=== PATIENT | female | born 1990 | race Caucasian/White ===

== ENCOUNTER 2018-09-09 16:59 | Emergency (ER) | payer OTHER ==
[~2018-09-09] VITALS: Ht 160 cm; Wt 59.0 kg
[~2018-09-09 16:59] MED LIST: ACETAMINOPHEN-1 EAC1 PO; ALEVE220 MG PO; CEPHALEXIN 500500 M3 PO; CIPROFLOXACIN500 M1 PO; CYCLOBENZAPRINE5 MG PO; EXPECTORAN100 MG/51 PO; FLAGYL500 MG PO; IBUPROFEN 600600 M1 PO; NORCO 5-325 TA1 EAC1 PO; NORCO 5-325 TA1 EACH PO; PENICILLIN V P500 MG PO; PREDNISONE 20 M20 M1 PO; PROAIR HFA8.5 GM INH; ROBAXIN500 MG PO; TRAMADOL 50 MG50 MG PO; TYLENOL EXTRA500 MG PO; ZOFRAN ODT4 MG SUBLING
[2018-09-09 18:12] LABS: ABSOLUTE LYMPHOCYTES 0.9 thou/uL (0.8-5.3); ABSOLUTE MONOCYTES 0.3 thou/uL (0.0-1.2); ABSOLUTE NEUTROPHILS 5.6 thou/uL (1.6-8.1); BASOPHILS 0.2 %; HEMATOCRIT 34.6 % (37.0-47.0); HEMOGLOBIN 11.5 gm/dL (12.0-15.0); LYMPHOCYTES 13.1 %; MCH 26.5 pg (26.0-34.0); MCHC 33.3 g/dL (28.0-37.0); MCV 79.8 fL (80.0-100.0); MPV 7.9 fl. (7.2-11.1); NUCLEATED RBCS 0 /100WBC; PLATELET COUNT* 232 thou/uL (150-400); POLYS 81.7 %; RBC 4.34 mil/uL (4.20-5.00); RDW-CV 17.6 % (10.5-14.5); WBC 6.9 thou/uL (4.0-11.0)
[2018-09-09 18:18] LABS: CALCIUM 9.1 mg/dL (8.5-10.1); CREATININE 0.8 mg/dL (0.6-1.3); POTASSIUM 3.5 mmol/L (3.5-5.1)
[2018-09-09 18:22] LABS: ALBUMIN 3.9 g/dL (3.4-5.0); TOTAL BILIRUBIN 0.8 mg/dL (<0.1-1.0); TOTAL PROTEIN 8.1 g/dL (6.4-8.2)
[2018-09-09 18:24] LABS: URINE BILIRUBIN NEGATIVE (Negative); URINE BLOOD 3+ (Negative); URINE CLARITY CLEAR; URINE COLOR YELLOW; URINE GLUCOSE-RANDOM NEGATIVE (Negative); URINE KETONES TRACE (Negative); URINE LEUKOCYTES-REFLEX NEGATIVE (Negative); URINE NITRITE-REFLEX NEGATIVE (Negative); URINE PROTEIN NEGATIVE (Negative); URINE SPECIFIC GRAVITY 1.015 (1.005-1.030); URINE UROBILINOGEN 0.2 E.U./dl (0.2-1.0)
[2018-09-09 18:32] LABS: MUCUS 0-3 Light strn/LPF (None Seen); SQUAMOUS >10 Many /LPF (0-3)
[2018-09-09 18:33] LABS: BACTERIA-REFLEX 1-9 Few /HPF (None Seen); CASTS None Seen /LPF (None Seen); CRYSTALS None Seen /LPF (None Seen); URINE RBC >20 Many /HPF (0-2)
[2018-09-09 18:34] LABS: URINE WBC-REFLEX 0-5 Rare /HPF (0-5)
[2018-09-09 18:43] LABS: INFLUENZA A ANTIGEN None Detected (None Detect); INFLUENZA B ANTIGEN None Detected (None Detect)
[2018-09-09] MEDS ORDERED: AMOXICILLIN 50500 MG PO (18:58)
[2018-09-09] MEDS ORDERED: ONDANSETRON HCL4 M2 PO (18:58)
[2018-09-09 19:33] VITALS: BP 104/62
== END 2018-09-09 19:36 | disposition home or self-care (01) ==
LOC: M.ERS 16:59
PROVIDERS: Nurse Practitioner Family
DX: J02.0 Streptococcal pharyngitis (principal); R11.2 Nausea with vomiting, unspecified; R51 Headache; M41.9 Scoliosis, unspecified; Z88.6 Allergy status to analgesic agent; Z88.8 Allergy status to other drugs, medicaments and biological substances

== ENCOUNTER 2018-11-29 18:46 | Emergency (ER) | payer OTHER, MEDICAID ==
[~2018-11-29] VITALS: Ht 160 cm; Wt 56.7 kg
[~2018-11-29 18:46] MED LIST changes: +AMOXICILLIN 50500 MG PO; +ONDANSETRON HCL4 M2 PO
[2018-11-29 20:35] LABS: URINE BILIRUBIN NEGATIVE (Negative); URINE BLOOD NEGATIVE (Negative); URINE CLARITY CLEAR; URINE COLOR YELLOW; URINE GLUCOSE-RANDOM NEGATIVE (Negative); URINE KETONES NEGATIVE (Negative); URINE LEUKOCYTES-REFLEX 1+ (Negative); URINE NITRITE-REFLEX NEGATIVE (Negative); URINE PROTEIN NEGATIVE (Negative); URINE UROBILINOGEN 0.2 E.U./dl (0.2-1.0)
[2018-11-29 20:42] LABS: ABSOLUTE EOSINOPHILS 0.1 thou/uL (0.0-0.7); ABSOLUTE LYMPHOCYTES 1.5 thou/uL (0.8-5.3); ABSOLUTE MONOCYTES 0.5 thou/uL (0.0-1.2); ABSOLUTE NEUTROPHILS 5.3 thou/uL (1.6-8.1); BASOPHILS 0.4 %; EOSINOPHILS 0.9 %; HEMATOCRIT 31.4 % (37.0-47.0); HEMOGLOBIN 10.5 gm/dL (12.0-15.0); LYMPHOCYTES 20.5 %; MCH 26.4 pg (26.0-34.0); MCHC 33.4 g/dL (28.0-37.0); MONOCYTES 6.4 %; MPV 7.6 fl. (7.2-11.1); NUCLEATED RBCS 0 /100WBC; PLATELET COUNT* 258 thou/uL (150-400); POLYS 71.8 %; RBC 3.97 mil/uL (4.20-5.00); RDW-CV 15.3 % (10.5-14.5); WBC 7.3 thou/uL (4.0-11.0)
[2018-11-29 20:49] LABS: BACTERIA-REFLEX 1-9 Few /HPF (None Seen); CASTS None Seen /LPF (None Seen); CRYSTALS None Seen /LPF (None Seen); SQUAMOUS >10 Many /LPF (0-3); URINE RBC None Seen /HPF (0-2); URINE WBC-REFLEX 0-5 Rare /HPF (0-5)
[2018-11-29 20:53] LABS: CREATININE 0.7 mg/dL (0.6-1.3); POTASSIUM 3.8 mmol/L (3.5-5.1)
[2018-11-29 20:57] LABS: ALBUMIN 3.6 g/dL (3.4-5.0); TOTAL BILIRUBIN 0.5 mg/dL (<0.1-1.0); TOTAL PROTEIN 7.9 g/dL (6.4-8.2)
[2018-11-29] MEDS ORDERED: NORCO 5-325 TA1 EACH PO (21:11)
[2018-11-29] MEDS ORDERED: DOXYCYCLINE MO100 M1 PO (21:11)
[2018-11-29] MEDS ORDERED: FLAGYL500 M1 PO ×2 (21:12→21:28)
[2018-11-29 21:32] VITALS: BP 140/74
== END 2018-11-29 21:33 | disposition home or self-care (01) ==
LOC: M.ERS 18:46
PROVIDERS: Emergency Medicine; Physician Assistant
DX: N73.0 Acute parametritis and pelvic cellulitis (principal); M41.9 Scoliosis, unspecified; G43.909 Migraine, unspecified, not intractable, without status migrainosus; I10 Essential (primary) hypertension; Z88.6 Allergy status to analgesic agent; Z88.8 Allergy status to other drugs, medicaments and biological substances

== ENCOUNTER 2019-02-01 17:52 | Emergency (ER) | payer OTHER, MEDICAID ==
[~2019-02-01] VITALS: Ht 160 cm; Wt 63.5 kg
[~2019-02-01 17:52] MED LIST changes: +DOXYCYCLINE MO100 M1 PO; +FLAGYL500 M1 PO
[2019-02-01 18:33] LABS: URINE BILIRUBIN NEGATIVE (Negative); URINE BLOOD NEGATIVE (Negative); URINE CLARITY CLEAR; URINE COLOR YELLOW; URINE GLUCOSE-RANDOM NEGATIVE (Negative); URINE KETONES 1+ (Negative); URINE LEUKOCYTES-REFLEX TRACE (Negative); URINE NITRITE-REFLEX NEGATIVE (Negative); URINE PROTEIN TRACE (Negative); URINE SPECIFIC GRAVITY >= 1.030 (1.005-1.030); URINE UROBILINOGEN 0.2 E.U./dl (0.2-1.0)
[2019-02-01 18:40] LABS: ABSOLUTE EOSINOPHILS 0.1 thou/uL (0.0-0.7); ABSOLUTE LYMPHOCYTES 1.7 thou/uL (0.8-5.3); ABSOLUTE MONOCYTES 0.2 thou/uL (0.0-1.2); ABSOLUTE NEUTROPHILS 2.3 thou/uL (1.6-8.1); BASOPHILS 1.2 %; EOSINOPHILS 1.6 %; HEMATOCRIT 35.1 % (37.0-47.0); HEMOGLOBIN 11.7 gm/dL (12.0-15.0); LYMPHOCYTES 39.4 %; MCH 26.1 pg (26.0-34.0); MCHC 33.4 g/dL (28.0-37.0); MCV 78.2 fL (80.0-100.0); MONOCYTES 4.7 %; MPV 7.7 fl. (7.2-11.1); NUCLEATED RBCS 0 /100WBC; PLATELET COUNT* 309 thou/uL (150-400); POLYS 53.1 %; RBC 4.49 mil/uL (4.20-5.00); RDW-CV 17.2 % (10.5-14.5); WBC 4.3 thou/uL (4.0-11.0)
[2019-02-01 18:53] LABS: ALBUMIN 4.3 g/dL (3.4-5.0); CALCIUM 9.2 mg/dL (8.5-10.1); CREATININE 0.7 mg/dL (0.6-1.3); POTASSIUM 3.7 mmol/L (3.5-5.1); TOTAL BILIRUBIN 0.5 mg/dL (<0.1-1.0); TOTAL PROTEIN 8.3 g/dL (6.4-8.2)
[2019-02-01 19:00] LABS: CASTS None Seen /LPF (None Seen); MUCUS >6 Heavy strn/LPF (None Seen); SQUAMOUS >10 Many /LPF (0-3)
[2019-02-01 19:01] LABS: CRYSTALS None Seen /LPF (None Seen); URINE RBC None Seen /HPF (0-2); URINE WBC-REFLEX 0-5 Rare /HPF (0-5)
[2019-02-01] MEDS ORDERED: TRINATE TABLET1 EACH PO (19:22)
[2019-02-01] MEDS ORDERED: KEFLEX500 M1 PO (19:52)
[2019-02-01 21:16] VITALS: BP 102/74
== END 2019-02-01 21:17 | disposition home or self-care (01) ==
LOC: M.ERS 17:52
PROVIDERS: Nurse Practitioner Family
DX: O23.41 Unspecified infection of urinary tract in pregnancy, first trimester (principal); O00.01 Abdominal pregnancy with intrauterine pregnancy; R73.9 Hyperglycemia, unspecified; D50.9 Iron deficiency anemia, unspecified; M41.9 Scoliosis, unspecified; G43.909 Migraine, unspecified, not intractable, without status migrainosus; I10 Essential (primary) hypertension; Z88.8 Allergy status to other drugs, medicaments and biological substances; Z3A.01 Less than 8 weeks gestation of pregnancy; Z88.6 Allergy status to analgesic agent